=== PATIENT | male | born 1965 | race Caucasian/White ===

== ENCOUNTER 2016-11-24 07:00 | Day surgery (SDC) | payer BC ==
[~2016-11-24] VITALS: Ht 172.7 cm; Wt 84.1 kg
[~2016-11-24 07:00] MED LIST: MELATONIN3 M4 PO
== END 2016-11-24 10:25 ==
LOC: ENDOS 07:00 → SHSA 07:00 → ENDOS 08:30
PROC: 0DB98ZX Excision of Duodenum, Via Natural or Artificial Opening Endoscopic, Diagnostic (ICD-10-PCS; principal; 2016-11-24)
DX: K29.80 Duodenitis without bleeding (principal); F32.9 Major depressive disorder, single episode, unspecified; K21.9 Gastro-esophageal reflux disease without esophagitis; Z79.899 Other long term (current) drug therapy